=== PATIENT | male | born 1985 | race Caucasian/White ===

== ENCOUNTER 2018-01-23 15:51 | Emergency (ER) | payer MEDICAID, SELFPAY ==
[2018-01-23] VITALS (15 sets, daily range): BP systolic 89–152; BP diastolic 46–127; PULSE 65–92; RESP 15–18; TEMP 36.7; O2SAT 97–100
--- NOTE | 2018-01-23 16:05 | DI.RAD_ITS ---
SYMPTOM/DIAGNOSIS: LACERATIONS TO DORSAL ASPECT OF INDEX AND MIDDLE LEFT HAND: There is gauze around the middle finger. There is a fracture seen extending transversely through the distal aspect of the proximal phalanx of the index finger. The 2nd and 3rd fingers show flexion at the proximal interphalangeal joints. No fractures are seen involving the middle finger, however, there is considerable overlap due to flexion deformity. There are a few small metallic foreign bodies in the soft tissues of the index and middle fingers. IMPRESSION: Nondisplaced fracture of the proximal phalanx of the index finger. Flexion deformities of the 2nd and 3rd proximal interphalangeal joints.
--- NOTE | 2018-01-23 16:11 | W.ED.GENAD ---
Discharge Plan Disposition Patient Disposition: HOME Condition: Fair Discharge Details Chief Complaint: Laceration Clinical Impression: Open fracture of finger, Extensor tendon rupture of hand, Crush injury of hand Primary Care Provider: Shama Dickinson ED Provider: Ramona Gutierres Home Meds and New Rx's Prescriptions: New cephalexin [Keflex] 500 mg capsule 500 mg PO QID Qty: 20 RF: 0 Discharge Instructions Instructions: Finger Fracture (ED), Tendon Rupture (ED) Additional Instructions: Encourage rest and elevation of your hand. Please keep current dressings on until evaluated by orthopedics. Please call orthopedics tomorrow morning to schedule follow-up appointment. Numbers listed below. If you bleed through these dressings you may reinforce with gauze. Take Keflex as prescribed to help prevent infection. May take 1000 mg of Tylenol every 6 hours and/or 600mg ibuprofen every 6 hours as needed for discomfort. You will be sent home with #3 oxycodone 5 mg tablets to be taken as needed every 6 hours for pain. He develop any new or worsening symptoms please seek care urgently once again Referrals: Alfredo Wesley MD [ [facility] STAFF PHYSICIAN] - 01/24/18 12:00 am ([phone]) Medical Decision Making MDM Narrative Medical decision making narrative: Patient presents today with chief complaint of laceration to the dorsal aspect of the index and middle finger of the left hand. Wounds are crush injuries proximal to the PIP joint. He is also noted to have a 5mm superficial laceration to the ulnar side of the ring finger. Wounds are actively bleeding. Patient is holding the 2nd and 3rd digits flexed at the PIP joint with DIP extended. 2 point descrimination intact. Tetanus UTD, last in 2017. Patient is pale, appears shaky and reports feeling presyncopal. Nursing staff and myself laid him down, he was noted to be hypotensive. After laying him down this improved and he began to feel improved. No longer feeling light headed. Discussed risk/benefits of digital block witht he patient. He voices understanding and wishes to proceed. Given the severity of his wounds, I am concerned for possible fracture. After anesthetizing the digits, plan to send to XR. Procedure note: Using standard sterile techinique, 10cc of 1% Lidocainie plain was used for digital blocks to the index and middle finger (5cc per digit). This sufficiently anesthetized the digits. X-ray reviewed by radiologist. They note a compound nondisplaced fracture of the distal metaphysis of the index finger proximal phalanx. Flexion deformity of the second and third proximal interphalangeal joints. No dislocation. Laceration of the dorsal soft tissues of the index and middle fingers is noted. Tiny metal fragments in the soft tissues of the dorsal aspect of the index and fifth fingers. Patient does not have any laceration to the fifth finger. However, the patient does work outside and may have obtained this FB at another time. Consulted with Dr. Wesley. He advised that this was a crush injury he would advise delayed healing but will plan to bring patient to the operating room for repair of his extensor tendons this week. He advised loose closure at this time and splinting in extension. Procedure note: Using standard sterile technique, further anesthesia was injected using the standard sterile technique for digital block. 10 cc was used for further analgesia. This sufficiently anesthetized the area. Using a tourniquet, wounds are explored to base of his finger. No foreign body or debris were noted. Wounds are copiously irrigated with sterile saline and cleansed with chlorhexidine. I was able to visualize the extensor tendon of the index finger as well as palpate the fracture. Tendon is ruptured. I had more difficulty visualizing the entirety of the extensor tendon of the middle finger. No bony involvement was noted on the middle digit. After sufficiently cleansing the areas, patient was turned to closure. Per Dr. Wesley's request, the wounds were loosely reapproximated. #2 simple interrupted stitches were placed into both wounds using 5-0 nylon. Patient tolerated this well and bulky dressings were applied Nursing staff reinforce the dressings I applied and applied a foam and metal splint to hold the digits in extension. Encourage rest and elevation to the affected hand. We discussed the signs and symptoms of infection when to seek care urgently once again. Advised to keep these dry. We will keep dressings in place until evaluated by orthopedics. He will contact their office tomorrow to schedule appointment. Patient will be started on Keflex. Patient feels that Tylenol and ibuprofen will be sufficient to help his discomfort. He is requesting Tylenol prior to discharge to help with his discomfort. However, patient does appear quite uncomfortable and his significant other is quite worried that he may have increasing discomfort at home tonight. Therefore, the patient, his and I discussed a few oxycodone to help with sleep and discomfort he may experience tonight. He will be discharged on tablets. Please given strict usage instructions. Advised to keep this in a safe place. Dosing instructions for Tylenol and ibuprofen was given. All of her questions and concerns were addressed and they are in agreement with this plan HPI - General Adult General Mode of arrival: ambulatory. Date/Time Provider Initiated Documentation: 01/23/18 16:05. Limitations to Documentation: no limitations. Information obtained by: patient. HPI Narrative: Patient is a [id number] 32-year-old male presenting today with chief complaint of lacerations to the left hand. Patient reports a prior to arrival he was splitting wood when he caught his left hand in the wood splitter. Injury to the index and middle finger of the affected hand. Since that time he has not been able to extend at the DIP joint of either digit. Tetanus was last completed in 2017. He denies other injury at the time of the incident. Denies any pain in his other fingers Related Data Previous Rx's Medication Instructions Recorded cephalexin [Keflex] 500 mg PO QID #20 cap 01/23/18 Allergies Allergy/AdvReac Type Severity Reaction Status Date / Time house dust Allergy Unknown Unverified 01/23/18 19:08 General Stated Complaint: Laceration MACKENZIE: 3 Review of Systems Constitutional Reports as per HPI, Denies chills, Denies fever(s) and Denies headache(s) ENT Denies headache(s) Musculoskeletal Reports as per HPI Integumentary/Breasts Reports as per HPI Neurologic Reports as per HPI and Denies headache(s) [facility] Social History Smoking/Tobacco Use Status: Never Exam Const General: cooperative, healthy appearing, in distress (Patient appears pale, Jimmy Arias is clutching his left hand) and well developed Nutritional Appearance: average body habitus Orientation: alert and awake Resp Effort & Inspection: normal respiratory effort, able to speak in complete sentences and no respiratory distress Auscultation: clear to auscultation bilaterally Cardio Rate: regular rate Rhythm: regular rhythm Heart Sounds: S1 normal and S2 normal Skin Trauma: laceration Wounds: no amputation sites Neuro General: alert and awake Cognition: normal cognition Speech: speech normal Gait: normal gait Motor: tone not normal throughout (Patient is unable to extend the PIP or DIP joint of the afflicted digits. Does have good flexion) Sensory Exam: no sensory deficits noted (2 point discrimination is intact in affected digits) Extrem General: abnormal to inspection (as above. Patient has index and middle fingers flexed to 90 at the PIP joint, DIP remains extended straight. ), abnormal ROM and normal capillary refill Course Vital Signs Temperature 36.7 C 01/23/18 15:58 Pulse 65 01/23/18 15:58 Respiratory Rate 18 01/23/18 15:58 Blood Pressure 89/46 L 01/23/18 15:58 Pulse Oximetry 98 01/23/18 15:58 Temperature 36.7 C 01/23/18 15:58 Pulse 65 01/23/18 15:58 Respiratory Rate 18 01/23/18 15:58 Blood Pressure 89/46 L 01/23/18 15:58 Pulse Oximetry 98 01/23/18 15:58
--- NOTE | 2018-01-23 16:35 | ED.GENADUL_ITS ---
Discharge Plan Disposition Patient Disposition: HOME Condition: Fair Discharge Details Chief Complaint: Laceration Clinical Impression: Open fracture of finger, Extensor tendon rupture of hand, Crush injury of hand Primary Care Provider: Shama Dickinson ED Provider: Ramona Gutierres Home Meds and New Rx's Prescriptions: New cephalexin [Keflex] 500 mg capsule 500 mg PO QID Qty: 20 RF: 0 Discharge Instructions Instructions: Finger Fracture (ED), Tendon Rupture (ED) Additional Instructions: Encourage rest and elevation of your hand. Please keep current dressings on until evaluated by orthopedics. Please call orthopedics tomorrow morning to schedule follow-up appointment. Numbers listed below. If you bleed through these dressings you may reinforce with gauze. Take Keflex as prescribed to help prevent infection. May take 1000 mg of Tylenol every 6 hours and/or 600mg ibuprofen every 6 hours as needed for discomfort. You will be sent home with # 3 oxycodone 5 mg tablets to be taken as needed every 6 hours for pain. He develop any new or worsening symptoms please seek care urgently once again Referrals: Alfredo Wesley MD [ [facility] STAFF PHYSICIAN] - 01/24/18 12:00 am ([phone]) Medical Decision Making MDM Narrative Medical decision making narrative: Patient presents today with chief complaint of laceration to the dorsal aspect of the index and middle finger of the left hand. Wounds are crush injuries proximal to the PIP joint. He is also noted to have a 5mm superficial laceration to the ulnar side of the ring finger. Wounds are actively bleeding. Patient is holding the 2nd and 3rd digits flexed at the PIP joint with DIP extended. 2 point descrimination intact. Tetanus UTD, last in 2017. Patient is pale, appears shaky and reports feeling presyncopal. Nursing staff and myself laid him down, he was noted to be hypotensive. After laying him down this improved and he began to feel improved. No longer feeling light headed. Discussed risk/benefits of digital block witht he patient. He voices understanding and wishes to proceed. Given the severity of his wounds, I am concerned for possible fracture. After anesthetizing the digits, plan to send to XR. Procedure note: Using standard sterile techinique, 10cc of 1% Lidocainie plain was used for digital blocks to the index and middle finger (5cc per digit). This sufficiently anesthetized the digits. X-ray reviewed by radiologist. They note a compound nondisplaced fracture of the distal metaphysis of the index finger proximal phalanx. Flexion deformity of the second and third proximal interphalangeal joints. No dislocation. Laceration of the dorsal soft tissues of the index and middle fingers is noted. Tiny metal fragments in the soft tissues of the dorsal aspect of the index and fifth fingers. Patient does not have any laceration to the fifth finger. However, the patient does work outside and may have obtained this FB at another time. Consulted with Dr. Wesley. He advised that this was a crush injury he would advise delayed healing but will plan to bring patient to the operating room for repair of his extensor tendons this week. He advised loose closure at this time and splinting in extension. Procedure note: Using standard sterile technique, further anesthesia was injected using the standard sterile technique for digital block. 10 cc was used for further analgesia. This sufficiently anesthetized the area. Using a tourniquet, wounds are explored to base of his finger. No foreign body or debris were noted. Wounds are copiously irrigated with sterile saline and cleansed with chlorhexidine. I was able to visualize the extensor tendon of the index finger as well as palpate the fracture. Tendon is ruptured. I had more difficulty visualizing the entirety of the extensor tendon of the middle finger. No bony involvement was noted on the middle digit. After sufficiently cleansing the areas, patient was turned to closure. Per Dr. Wesley's request , the wounds were loosely reapproximated. #2 simple interrupted stitches were placed into both wounds using 5-0 nylon. Patient tolerated this well and bulky dressings were applied Nursing staff reinforce the dressings I applied and applied a foam and metal splint to hold the digits in extension. Encourage rest and elevation to the affected hand. We discussed the signs and symptoms of infection when to seek care urgently once again. Advised to keep these dry. We will keep dressings in place until evaluated by orthopedics. He will contact their office tomorrow to schedule appointment. Patient will be started on Keflex. Patient feels that Tylenol and ibuprofen will be sufficient to help his discomfort. He is requesting Tylenol prior to discharge to help with his discomfort. However, patient does appear quite uncomfortable and his significant other is quite worried that he may have increasing discomfort at home tonight. Therefore, the patient, his and I discussed a few oxycodone to help with sleep and discomfort he may experience tonight. He will be discharged on tablets. Please given strict usage instructions. Advised to keep this in a safe place. Dosing instructions for Tylenol and ibuprofen was given. All of her questions and concerns were addressed and they are in agreement with this plan HPI - General Adult General Mode of arrival: ambulatory . Date/Time Provider Initiated Documentation: 01/23/18 16:05 . Limitations to Documentation: no limitations . Information obtained by: patient . HPI Narrative: Patient is a [id number] 32-year-old male presenting today with chief complaint of lacerations to the left hand. Patient reports a prior to arrival he was splitting wood when he caught his left hand in the wood splitter. Injury to the index and middle finger of the affected hand. Since that time he has not been able to extend at the DIP joint of either digit. Tetanus was last completed in 2017. He denies other injury at the time of the incident. Denies any pain in his other fingers Related Data Previous Rx's Medication Instructions Recorded cephalexin [Keflex] 500 mg PO QID #20 cap 01/23/18 Allergies Allergy/AdvReac Type Severity Reaction Status Date / Time house dust Allergy Unknown Unverified 01/23/18 19:08 General Stated Complaint: Laceration MACKENZIE: 3 Review of Systems Constitutional Reports as per HPI, Denies chills, Denies fever(s) and Denies headache(s) ENT Denies headache(s) Musculoskeletal Reports as per HPI Integumentary/Breasts Reports as per HPI Neurologic Reports as per HPI and Denies headache(s) [facility] Social History Smoking/Tobacco Use Status: Never Exam Const General: cooperative, healthy appearing, in distress (Patient appears pale, Jimmy Arias is clutching his left hand) and well developed Nutritional Appearance: average body habitus Orientation: alert and awake Resp Effort & Inspection: normal respiratory effort, able to speak in complete sentences and no respiratory distress Auscultation: clear to auscultation bilaterally Cardio Rate: regular rate Rhythm: regular rhythm Heart Sounds: S1 normal and S2 normal Skin Trauma: laceration Wounds: no amputation sites Neuro General: alert and awake Cognition: normal cognition Speech: speech normal Gait: normal gait Motor: tone not normal throughout (Patient is unable to extend the PIP or DIP joint of the afflicted digits. Does have good flexion) Sensory Exam: no sensory deficits noted (2 point discrimination is intact in affected digits) Extrem General: abnormal to inspection (as above. Patient has index and middle fingers flexed to 90 at the PIP joint, DIP remains extended straight. ), abnormal ROM and normal capillary refill Course Vital Signs Temperature 36.7 C 01/23/18 15:58 Pulse 65 01/23/18 15:58 Respiratory Rate 18 01/23/18 15:58 Blood Pressure 89/46 L 01/23/18 15:58 Pulse Oximetry 98 01/23/18 15:58 Temperature 36.7 C 01/23/18 15:58 Pulse 65 01/23/18 15:58 Respiratory Rate 18 01/23/18 15:58 Blood Pressure 89/46 L 01/23/18 15:58 Pulse Oximetry 98 01/23/18 15:58
--- NOTE | 2018-01-23 16:43 | DI.VRAD_ITS ---
EXAM: XR Left Hand Complete, 3 or More Views CLINICAL HISTORY: 32 years old, male; Pain; Finger(s) and hand; Left; Patient HX: Lacerations to dorsal aspect of index and middle finger. ; Additional info: Pt. Unable to straighten middle and index finger(s) due to injury. Best images possible TECHNIQUE: Frontal, lateral and oblique views of the left hand. COMPARISON: No relevant prior studies available. FINDINGS: Bones/joints: Compound nondisplaced fracture of the distal metaphysis of the index finger proximal phalanx. Flexion deformities of the second and third proximal interphalangeal joints. No dislocation. Soft tissues: Laceration of the dorsal soft tissues of the index and middle fingers. Tiny metal fragments within the soft tissues of the distal aspect of the index and fifth fingers. IMPRESSION: Compound nondisplaced fracture of the distal metaphysis of the index finger proximal phalanx. Dictated and Authenticated by: Eric Aquino MD. Ordering:ALPHONSE DEL RIO MD
[2018-01-23] MEDS: Cephalexin 500 MG CAP PO (18:30)
[2018-01-23] MEDS: Cephalexin 500 MG CAP 1000 MG PO (18:34)
[2018-01-23] MEDS: oxyCODONE 5 MG TAB 15 MG PO (18:34)
[2018-01-23] MEDS: Acetaminophen 500 MG TAB 1000 MG PO (18:39)
== END 2018-01-23 18:45 | disposition home or self-care (01) ==
PROVIDERS: Emergency Provider Physician Assistant; PCP Family Medicine
DX: S67.191A Crushing injury of left index finger, initial encounter (principal); S67.193A Crushing injury of left middle finger, initial encounter; W23.0XXA Caught, crushed, jammed, or pinched between moving objects, initial encounter; S62.641B Nondisplaced fracture of proximal phalanx of left index finger, initial encounter for open fracture; S66.311A Strain of extensor muscle, fascia and tendon of left index finger at wrist and hand level, initial encounter; S61.213A Laceration without foreign body of left middle finger without damage to nail, initial encounter
CPT/HCPCS: 12001; 64450; 99284; 73130

== ENCOUNTER 2018-01-25 12:54 | Day surgery (SDC) | payer MEDICAID, SELFPAY ==
[2018-01-25 13:11] VITALS: BP 116/73; PULSE 69; RESP 16; TEMP 36.5; O2SAT 98
--- NOTE | 2018-01-25 13:22 | DI.RAD_ITS ---
SYMPTOM/DIAGNOSIS: ORIF FINGER, CRUSH INJURY C-ARM LEFT INDEX FINGER: Fluoroscopy Time: 51 seconds / 4.0864Gy Fluoroscopy was utilized by Dr. Wesley during the reduction and pinning of the fracture involving the proximal phalanx of the left index finger. Alignment appears anatomic. Two percutaneous pins are seen traversing the fracture site. There is soft tissue swelling of the left index finger. Please refer to the procedure report for complete details.
--- NOTE | 2018-01-25 13:41 | W.PM.DSUDISC ---
Discharge Plan Disposition Patient Disposition: HOME Condition: Good Discharge Details Reason For Visit: LDF,LMF CRUSH INJURY Attending Provider: Alfredo Wesley Primary Care Provider: Shama Dickinson Home Meds and New Rx's Prescriptions: New hydrocodone-acetaminophen 5-325 mg Tablet 1 tab PO Q6H PRN PRN (Reason: Pain) Qty: 5 RF: 0 ibuprofen 600 mg tablet 600 mg PO TID PRN (Reason: pain) Qty: 30 RF: 3 Continue cephalexin [Keflex] 500 mg capsule 500 mg PO QID Qty: 20 RF: 0 ibuprofen 200 mg Tablet 600 mg PO PRN PRNRF: 0 Changed acetaminophen [Tylenol Extra Strength] 500 mg Tablet 1,000 mg PO Q8H PRN PRNQty: 60 RF: 3 Discharge Instructions Additional Instructions: Activity: You may use your non-splinted fingers and thumb as tolerated. You should avoid any heavy lifting or repetitive use to avoid injury to the repaired fingers. Youshould keep the splint on at all times. Dressings/Splints: You should keep the splint on at all times. Keep it clean and dry. Medications: You should use Tylenol and Ibuprofen for baseline pain control. You should finish your prescription of Keflex. You have Hydrocodone for breakthrough pain. Follow-up: 7 days Equipment/Supplies: Splint Activity:: Elevate Remove Dressings/Wound Care:: Do Not Remove Shower/Bathe:: Cover Equipment/Supplies:: No Equipment Needed Diet:: Regular Discharge Orders Discharge Orders: Discharge Order (Routine); Ordered 01/25/18 Ordered By: Alfredo Wesley Discharge Data Discharge Physician: Alfredo Wesley DS: Diagnosis Discharge Diagnosis (1) Extensor tendon laceration of left hand with open wound: Status: Acute (2) Open displaced fracture of proximal phalanx of left index finger: Status: Acute
[2018-01-25] MEDS: Lactated Ringers 1,000 ML 80 ML IV (13:44)
[2018-01-25] MEDS: Lidocaine 1% Pres-Free 5 ML VIAL 15 ML (14:14)
[2018-01-25] MEDS: Bupivacaine 0.5% Pres-Free 30 ML VIAL (14:14)
[2018-01-25 16:50] VITALS: BP 112/63; PULSE 74; RESP 16; TEMP 36.8; O2SAT 100
--- NOTE | 2018-01-25 19:51 | ROE_ITS ---
DATE OF SURGERY: January 25, 2018 PREOPERATIVE DIAGNOSIS: Open extensor tendon lacerations of the index and middle fingers with open proximal phalanx fracture of the left index finger. POSTOPERATIVE DIAGNOSIS: Same. SURGERY: #1. Open reduction and pinning of left grade 1 open proximal phalanx fracture. #2. Repair of a zone 4 extensor tendon injury of index and middle finger of the left hand. SURGEON: Alfredo Wesley M.D. DIRECTOR OF SURGERY: Nicolette Baron PA-C ANESTHESIA: MAC ESTIMATED BLOOD LOSS: 50 cc FINDINGS: There was a comminuted and depressed fracture of the distal aspect of the proximal phalanx. Reduction was quite difficult. It was hard to obtain any anatomic reduction due to the deformity of the bone in this area. It was held in an appropriate position and with two crossing pins. The extensor mechanism over the index finger was disrupted, somewhat roughly, but was able to be reapproximated. The middle finger had a much millstone cleaner cut to the extensor tendon which had a nice reapproximation. COMPLICATIONS: None. DISPOSITION: The patient was awakened from anesthesia and taken to the PACU in a stable condition. 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 He was seen in the Emergency Department where he was diagnosed with an open fracture of the left index finger proximal phalanx as well as extensor tendon injuries of the middle and index fingers. I saw him in clinic the following day and discussed the possible treatment options. Given the open injuries, I did recommend operative fixation. I reviewed the risks of the procedure to include bleeding, infection, pain, stiffness, malunion, nonunion, failure of repair, need for repeat procedures, and damage to nerves and vessels. Despite these risks, he elected to proceed. PROCEDURE DESCRIPTION: Mark was greeted in the preoperative holding area. His identity was confirmed and the correct side was identified and marked. The consent was reviewed with the patient and signed. The History and Physical was updated. He was taken back to the Operating Room and placed in a supine position. All bony prominences were well padded. Prophylactic antibiotics in the form of cefazolin were given. The left hand dressing was removed. The hand was prepped with Betadine and draped in a standard fashion. A time-out was performed for safe surgery. A MAC anesthetic was then given. A digital block was performed with a mixture of 1% lidocaine and 0.5% bupivacaine for the index and middle fingers. After this had set up appropriately, we then began with the index finger. The wound was extended in a [place] type incision given that the initial laceration was in an oblique fashion across the distal aspect of the proximal phalanx. This was extended and I had excellent visualization of the extensor mechanism. The proximal phalanx fracture was identified. However, it was difficult to obtain any anatomical alignment given the deformity of the bone. The dorsal cortex was depressed significantly which prevented anatomic alignment. It was relatively lined up which appeared to be in appropriate positioning. This was held in position and confirmed with fluoroscopy. I then placed one K-wire from within the bone, out the distal aspect of the proximal phalanx and out the skin, and then used this to joystick the distal end back onto the base of the proximal phalanx. This particular pin was able to run down the entire length of the proximal phalanx shaft. It again showed there was an adequate alignment. This was then placed through the second cortex. A second pin was then placed. The second pin was a 0.035 K-wire. This was again placed in a crossing type pattern. It again secured the fracture fixation. Significant irrigation was performed prior to any of the fixation. It was performed for both fingers. Debridement was also performed. There was no gross contamination. These were grade 1 open injuries of the left index finger. I then turned out attention to extensor mechanism. It was, unfortunately, fairly roughly lacerated. There were no clean-cut edges. The extensor tendon was cut just distal to the contribution of the lateral bands. Using a #3-0 Ethibond, I performed a running, locking horizontal mattress suture. This reapproximated the extensor tendon quite nicely. I did incorporate some of the lateral bands in the repair. I also used a #4-0 Ethibond to reinforce this repair for any areas of gapping or any other areas of concern. I had excellent reapproximation and the repair was stable even down to 90 degrees of flexion. We then turned our attention to the middle finger. The laceration was again opened up in a [place] type style given the initial oblique nature of the initial laceration. The soft tissue was dissected down to expose the extensor العلي and extensor mechanism. With this exposed, the laceration of the extensor tendon was much more clean than it was appreciated on the index finger. We were able to get excellent reduction of the extensor tendon. With the running, locking horizontal mattress suture and a #3-0 Ethibond I was able to repair the extensor mechanism in a near anatomic fashion. This was once again irrigated. The skin was then closed with a #4-0 nylon. Jurgan balls were placed on the ends of K-wires out of the index finger. The finger was then dressed with Xeroform, 4x4s, and Webril. He was then placed into a wrist splint. Given the patient's request, I did place him into an intrinsic plus position leaving his thumb, ring, and small finger free. At the end of the case all counts were correct. He was transferred back to the Same Day Surgery Unit in a stable condition.
== END 2018-01-25 17:11 | disposition home or self-care (01) ==
PROVIDERS: PCP Family Medicine; Visit Provider Student in an Organized Health Care Education/Training Program
PROC: (CPT 11012; principal; 2018-01-25 15:00)
PROC: (CPT 11012; 2018-01-25 15:00)
DX: S67.191A Crushing injury of left index finger, initial encounter (principal); S62.611B Displaced fracture of proximal phalanx of left index finger, initial encounter for open fracture; S66.321A Laceration of extensor muscle, fascia and tendon of left index finger at wrist and hand level, initial encounter; S61.211A Laceration without foreign body of left index finger without damage to nail, initial encounter; S67.193A Crushing injury of left middle finger, initial encounter; S66.323A Laceration of extensor muscle, fascia and tendon of left middle finger at wrist and hand level, initial encounter; W23.0XXA Caught, crushed, jammed, or pinched between moving objects, initial encounter; W31.89XA Contact with other specified machinery, initial encounter; Y93.H9 Activity, other involving exterior property and land maintenance, building and construction
CPT/HCPCS: 11012; 26418 ×2; 26735; 76000; J0690; J1885

== ENCOUNTER 2018-02-02 14:48 | Outpatient (CLI) | payer MEDICAID, SELFPAY ==
--- NOTE | 2018-02-02 14:48 | DI.RAD_ITS ---
SYMPTOMS/DIAGNOSIS: LEFT INDEX FINGER FRACTURE LEFT INDEX FINGER: Three views were obtained and show pin fixation of fracture of the head of the proximal phalanx of the index finger. There has been no gross interval change in alignment of the fracture fragments in comparison with intraoperative films of January 25, allowing for differences in projection between the two examinations.
== END 2018-02-02 15:08 ==
PROVIDERS: PCP Family Medicine; Visit Provider Student in an Organized Health Care Education/Training Program
DX: S62.610D Displaced fracture of proximal phalanx of right index finger, subsequent encounter for fracture with routine healing (principal)
CPT/HCPCS: 73140

== ENCOUNTER 2018-02-16 14:27 | Outpatient (CLI) | payer MEDICAID, SELFPAY ==
--- NOTE | 2018-02-16 14:50 | DI.RAD_ITS ---
SYMPTOMS/DIAGNOSIS: F/U LT INDEX FINGER LEFT INDEX FINGER: Three views. Comparison is 02/02/18. There are again seen percutaneous pins transfixing the fracture of the proximal phalanx of the left index finger. No change in alignment of the orthopedic hardware or fracture components is noted. No new fractures or dislocations are present.
== END 2018-02-16 14:47 ==
PROVIDERS: PCP Family Medicine; Visit Provider Student in an Organized Health Care Education/Training Program
DX: S62.611D Displaced fracture of proximal phalanx of left index finger, subsequent encounter for fracture with routine healing (principal)
CPT/HCPCS: 73140

== ENCOUNTER 2018-03-02 14:20 | Outpatient (CLI) | payer MEDICAID, SELFPAY ==
--- NOTE | 2018-03-02 13:48 | DI.RAD_ITS ---
SYMPTOMS/DIAGNOSIS: F/U FX LT HAND LEFT HAND: There is a mildly displaced comminuted fracture involving the distal metaphysis of the proximal phalanx of the index finger. There is soft tissue swelling involving the proximal portion of the finger. There has apparently been no significant interval change in the status of the fracture when compared with the prior exam.
== END 2018-03-02 14:40 ==
PROVIDERS: PCP Family Medicine; Visit Provider Physician Assistant
DX: S62.611D Displaced fracture of proximal phalanx of left index finger, subsequent encounter for fracture with routine healing (principal)
CPT/HCPCS: 73130

== ENCOUNTER 2018-03-23 15:23 | Outpatient (CLI) | payer MEDICAID, SELFPAY ==
--- NOTE | 2018-03-23 15:20 | DI.RAD_ITS ---
SYMPTOM/DIAGNOSIS: F/U FX LEFT INDEX FINGER: Since the previous examination, the fixation pins have been removed from the proximal phalanx. In the lateral projection, note is made of some mild diastasis at the fracture line. There is nothing to suggest that healing is not progressing satisfactorily at the present time.
== END 2018-03-23 15:43 ==
PROVIDERS: PCP Family Medicine; Visit Provider Physician Assistant
DX: S62.611D Displaced fracture of proximal phalanx of left index finger, subsequent encounter for fracture with routine healing (principal)
CPT/HCPCS: 73140

== ENCOUNTER 2018-03-29 12:01 | Day surgery (SDC) | payer MEDICAID, SELFPAY ==
--- NOTE | 2018-03-29 07:27 | W.PM.DSUDISC ---
Discharge Plan Disposition Patient Disposition: HOME Condition: Good Discharge Details Reason For Visit: Left Hand Extensor Tenolysis Attending Provider: Alfredo Wesley Primary Care Provider: Shama Dickinson Home Meds and New Rx's Prescriptions: Continue hydrocodone-acetaminophen 5-325 mg Tablet 1 tab PO Q6H PRN PRN (Reason: Pain) Qty: 5 RF: 0 ibuprofen 600 mg tablet 600 mg PO TID PRN (Reason: pain) Qty: 30 RF: 3 acetaminophen [Tylenol Extra Strength] 500 mg Tablet 1,000 mg PO Q8H PRN PRNQty: 60 RF: 3 Discontinued cephalexin [Keflex] 500 mg capsule 500 mg PO QID Qty: 20 RF: 0 ibuprofen 200 mg Tablet 600 mg PO PRN PRNRF: 0 Discharge Instructions Additional Instructions: Activity: You should start moving your fingers as soon as possible. You should work on both active flexion and extension. You should try to move them under your own power without pushing too hard to avoid any possible rupture. Dressings: You may remove the initial dressing after 48 hours. It may get wet at that time. You should keep it covered with a light gauze. Follow-up: 7 days Activity:: Elevate Remove Dressings/Wound Care:: 48 hours Shower/Bathe:: 48 hours Diet:: As Tolerated Discharge Orders Discharge Orders: Discharge Order (Routine); Ordered 03/29/18 Ordered By: Alfredo Wesley DS: Diagnosis Discharge Diagnosis (1) Extensor tendon laceration of left hand with open wound: Status: Acute (2) Contracture, left hand: Status: Acute
[2018-03-29 12:12] VITALS: BP 128/66; PULSE 67; RESP 16; TEMP 36.9; O2SAT 98
[2018-03-29] MEDS: Lidocaine 1% Pres-Free 5 ML VIAL (13:06)
[2018-03-29] MEDS: Bupivacaine 0.25% Pres-Free 30 ML VIAL (13:49)
[2018-03-29] MEDS: Acetaminophen 325 MG TAB 650 MG PO (14:03)
[2018-03-29 14:30] VITALS: BP 124/70; PULSE 67; RESP 16; TEMP 36.9; O2SAT 100
--- NOTE | 2018-03-31 08:28 | ROE_ITS ---
REPORT OF OPERATIVE PROCEDURE DATE OF SURGERY March 29, 2018 PREOPERATIVE DIAGNOSIS Left index finger contracture. POSTOPERATIVE DIAGNOSIS Left index finger contracture. SURGERY Left hand extensor tenolysis of the left index finger. SURGEON Alfredo Wesley M.D. FINDINGS There was notable scaring of the extensor tendon to the overlying of the skin and the underlying bone . The tendon repair appeared to be intact. The adhesions between the extensor tendon and the middle phalanx were released. The capsule of the PIP joint was released. ANESTHESIA Local. ESTIMATED BLOOD LOSS Minimal. COMPLICATIONS None. DISPOSITION The patient tolerated the procedure well and was taken back to Same Day Surgery in a stable condition . INDICATION FOR PROCEDURE Mark has been followed for an open extensor tendon injury with accompanied middle phalanx fracture. A t that time, his fracture was treated with pinning and splinting. He's now got a limited range of mot ion and has not made any progress. His middle finger, which also has an open extensor tendon injury, is making better progress. Given the significant limitation, I did offer evaluation of the extension tendon to confirm appropriate healing, as well as scar excision. I discussed the treatment options an d the risks. I reviewed the risks in detail including bleeding, infection, pain, stiffness, re-ruptur e, need for repeat procedures, damage to nerves and vessels, skin healing difficulties. Despite thes e risks, he elected to proceed. PROCEDURE DESCRIPTION Mark was greeted in the preoperative holding area. His identity was confirmed and the correct side wa s identified and marked. The history and physical had been previously performed in the office. The co nsent was reviewed with the patient and signed. He was taken back to the Operating Room. He was placed in the supine position. The left arm was place d onto the hand table. No Prophylactic antibiotics were necessary given the clean elective hand proce dure. The left hand was prepped with ChloraPrep and draped in a standard fashion. Time-out was perfor med for safe surgery. The digit was first anesthetized using a digital block using 0.5% bupivacaine and 1% lidocaine. Once anesthesia had been obtained, a [place] drain was used to perform a tourniquet to the finger. The pre vious incision site was opened up and extended slightly proximally and distally. Skin flaps were elev ated using tenotomy scissors. This exposed the extensor mechanism. The extensor tendon was evaluated and appeared to be intact. There was one loose Ethibond suture, which was removed. The plane overlyin g the extensor tendon was difficult to appreciate. However, starting proximally and distally, I was a ble to create the plane fully to elevate it over the lateral bands both medially and laterally. The l ateral bands appeared to be intact. The central slip appeared to be intact. I then used the tenotomy scissors to clear the space between the lateral bands, and the extensor tendon proximal to the repai r site. I was then able to use this to dissect down to bone and free up the tendon from the underlyin g bone. There were significant adhesions between the tendon and the bone itself. Using a freer and te notomy scissors, I was able to release the tendon from the underlying bone. This allowed the tendon t o elevate itself off the bone. This was taken all the way to the central slip insertion on the base o f the middle phalanx. I also dissected underneath the lateral bands, freeing up any adhesions betwee n the lateral bands and the proximal phalanx. I then was able to release the dorsal aspect of the joelle nt capsule of the PIP joint. This showed adequate improvement with PIP flexion. I then performed a ma nual manipulation of the digit and I was able to get PIP flexion to approximately 65 or 70 degrees. I therefore stopped at this point. The wound was then thoroughly irrigated. The incision was then clos ed with a #4-0 Nylon. The [place] drain was removed. A confirm dressing wrap was applied to the finge r. At the end of the case, all counts were correct.
== END 2018-03-29 14:25 | disposition home or self-care (01) ==
LOC: SUR 12:02
PROVIDERS: PCP Family Medicine; Visit Provider Student in an Organized Health Care Education/Training Program
PROC: (CPT 26055; principal; 2018-03-29 14:15)
DX: S66.32 Laceration of extensor muscle, fascia and tendon of other and unspecified finger at wrist and hand level (principal); M24.542 Contracture, left hand; W23.0XXA Caught, crushed, jammed, or pinched between moving objects, initial encounter; W31.89XA Contact with other specified machinery, initial encounter; Y93.H9 Activity, other involving exterior property and land maintenance, building and construction
CPT/HCPCS: 26445

== ENCOUNTER 2018-07-13 15:34 | Outpatient (CLI) | payer MEDICAID, SELFPAY ==
--- NOTE | 2018-07-13 15:31 | DI.RAD_ITS ---
SYMPTOM/DIAGNOSIS: F/U FX LEFT INDEX FINGER: Comparison is made with 03/23/18. Soft tissue swelling remains present around the fracture site of the distal aspect of the proximal phalanx. There is no change in alignment. The fracture remains visible. There is callous formation. IMPRESSION: Delayed union at the fracture site.
== END 2018-07-13 15:54 ==
PROVIDERS: PCP Family Medicine; Visit Provider Physician Assistant
DX: S62.611D Displaced fracture of proximal phalanx of left index finger, subsequent encounter for fracture with routine healing (principal); M79.89 Other specified soft tissue disorders
CPT/HCPCS: 73140

== ENCOUNTER 2022-08-21 11:48 | Outpatient (REF) | payer MEDICAID, SELFPAY | END 2022-08-21 11:49 | disposition home or self-care (01) | LOC: LBN 11:48 | PROVIDERS: PCP Nurse Practitioner Family; Visit Provider Physician Assistant | DX: J02.9 Acute pharyngitis, unspecified (principal) | CPT/HCPCS: 87070 ==

== ENCOUNTER 2022-10-19 10:20 | Outpatient (CLI) | payer MEDICAID, SELFPAY ==
[2022-10-19 10:58] LABS: Hemoglobin A1C 5.1 % (<5.7)
[2022-10-19 11:40] LABS: Calculated LDL 59 mg/dL (<100); Cholesterol 127 mg/dL (<200); HDL Cholesterol 54 mg/dL (40-60); TSH (W/Ref FT4) 0.74 uIU/mL (0.36-3.74); Triglyceride 73 mg/dL (<150)
== END 2022-10-19 10:21 | disposition home or self-care (01) ==
LOC: LBO 10:21
PROVIDERS: PCP Nurse Practitioner Family; Visit Provider Nurse Practitioner Family
DX: R53.83 Other fatigue (principal); Z13.220 Encounter for screening for lipoid disorders; Z13.1 Encounter for screening for diabetes mellitus
CPT/HCPCS: 36415; 80061; 83036; 84443

== ENCOUNTER 2022-10-19 10:48 | Outpatient (CLI) | payer MEDICAID, SELFPAY ==
--- NOTE | 2022-10-19 09:45 | DI.RAD_ITS ---
Exam(s) XR FINGER LT INDEX EXAM: XR FINGER LT INDEX EXAM DATE/TIME: CLINICAL HISTORY: eval L index finger proximal phalanx malunion. TECHNIQUE: 2D digital imaging was performed of the left finger. Three views were obtained. PA/AP, oblique, and lateral views were obtained. COMPARISON: None. FINDINGS: BONES: The displaced fracture involving the distal aspect of the proximal phalanx of the index finger has completely healed. No acute fractures identified. No bony destructive lesion is seen. JOINTS: No dislocation is present. There is narrowing of the PIP joint of the index finger. SOFT TISSUE: Normal. IMPRESSION: Healed displaced proximal phalangeal fracture. DATA REPOSITORY: RADIATION DOSE DELIVERED:
== END 2022-10-19 10:49 | disposition home or self-care (01) ==
LOC: DIORS 10:48
PROVIDERS: PCP Nurse Practitioner Family; Referring Provider Nurse Practitioner Family; Visit Provider Student in an Organized Health Care Education/Training Program
DX: M24.542 Contracture, left hand (principal); S62.611D Displaced fracture of proximal phalanx of left index finger, subsequent encounter for fracture with routine healing; X58.XXXD Exposure to other specified factors, subsequent encounter
CPT/HCPCS: 73140

== ENCOUNTER 2022-11-12 01:28 | Outpatient (CLI) | payer MEDICAID, SELFPAY ==
--- NOTE | 2022-11-12 10:15 | DI.CT_ITS ---
Exam(s) CT UPPER EXTREMITY LT WO EXAM: CT UPPER EXTREMITY LT WO CLINICAL HISTORY: PAIN, SURGICAL PLANNING,DISPLACED FX LT FINGER,S62.797G TECHNIQUE: Imaging Protocol: Axial computed tomography images with coronal and sagittal reformatted images were created and reviewed. CONTRAST MATERIAL: Noncontrast COMPARISON: CR XR finger LT index from 07/13/2018 CR XR FINGER LT INDEX from 10/19/2022 FINDINGS: Bones: There is an old healed fracture deformity of the distal for aspect of the proximal phalanx of the index finger. There is joint space narrowing and a few tiny cystic changes. No lytic or sclerotic lesions are identified. Soft Tissues: Tiny rounded foreign body is seen in the ventral soft tissues at the level of the dist al phalanx. The tendons appear grossly intact. IMPRESSION: Old healed deformity at the distal aspect of the proximal phalanx. Mild degenerative changes at the proximal interphalangeal joint. RADIATION DOSE DELIVERED: 320.39mGy.cm Total DLP 320.39mGy.cm Total DLP 320.39mGy.cm Total DLP DATA REPOSITORY: All CT scans at this facility are submitted to the National Radiology Data Registry (NRDR) Dose Index Registry (DIR) with the [employer] ([employer]). RADIATION OPTIMIZATION: All CT scans at this facility use at least one of these dose optimization te chniques: automated exposure control; mA and/or kV adjustment per patient size (includes targeted exa ms where dose is matched to clinical indication); or iterative reconstruction.
== END 2022-11-12 01:48 ==
LOC: DI 01:28
PROVIDERS: PCP Nurse Practitioner Family; Visit Provider Student in an Organized Health Care Education/Training Program
DX: S62.611S Displaced fracture of proximal phalanx of left index finger, sequela (principal); Z01.818 Encounter for other preprocedural examination; X58.XXXS Exposure to other specified factors, sequela
CPT/HCPCS: 73200